=== PATIENT | female | born 1970 | race Caucasian/White ===

== ENCOUNTER 2017-04-20 13:38 | Emergency (ER) | payer BC ==
[2017-04-20] MEDS ORDERED: Aspirin 81 MG Tab.Chew PO ONE (14:34)
[2017-04-20] MEDS ORDERED: Alum Hydrox/Mag Hydrox/Simeth 30 ML, Lidocaine 2% 15 ML PO ONE ×2 (14:34)
[2017-04-20] MEDS ORDERED: Sodium Chloride 0.9% 10 ML Syringe FLUSH PRN (14:34)
[2017-04-20] MEDS ORDERED: Aspirin 325 MG Tab.EC PO ONE (14:34)
--- NOTE | 2017-04-20 14:37 | EDM.PDOC ---
ED HPI GENERAL MEDICAL PROBLEM - General Chief Complaint: Chest Pain Stated Complaint: CHEST PAIN Time Seen by Provider: 04/20/17 14:25 Source of Information: Reports: Patient History Limitations: Reports: No Limitations - History of Present Illness INITIAL COMMENTS - FREE TEXT/NARRATIVE: Patient is a 46-year-old female who presents the ED complaining of chest pressure. States this started approximate 4:00 this morning upon awakening. Pain is described as a pressure sensation to the substernal aspect of her chest. She does have evidence of intermittent sharp, stabbing, dull ache that does not radiate. She become lightheaded with no presyncope or syncopal episode. She did have intermittent episode of nausea with shortness of breath. Pain has been noted to increase with taking a deep breath. Denies any fever/ chills, diaphoresis, history of coronary disease, experiencing similar symptoms in the past, or any additional complaints. Pain is rated a 5 at 10 currently. She has not taken any [id number] medications. PCP is Dr. Crys Arias. Patient is a type II diabetic with A1c of 7.2. She has no history of hypercholesteremia, hypertension, kidney disease, or coronary disease. There are no first-degree relatives with coronary disease. She has no history of DVT/ PE. Treatments AIR DIRECTOR: Reports: Other (see below) Other Treatments AIR DIRECTOR: daily asa 81 mg at 0700 Chest Pain Score (Numeric/FACES): 5 - Related Data Allergies Allergy/AdvReac Type Severity Reaction Status Date / Time morphine Allergy Cannot Verified 04/20/17 15:25 Remember Sulfa (Sulfonamide Allergy Rash Verified 04/20/17 15:25 Antibiotics) Home Meds: Home Meds Kombiglyze. 1 tab PO BID 04/10/14 [History] Lantus. 25 units INJECT BEDTIME 04/10/14 [History] Multivitamin [Multivitamins] 1 tab PO DAILY 04/20/17 [History] Social & Family History - Tobacco Use Years of Tobacco use: 22 - Alcohol Use Days Per Week of Alcohol Use: 0 - Recreational Drug Use Recreational Drug Use: No ED ROS GENERAL - Review of Systems Review Of Systems: ROS reveals no pertinent complaints other than HPI. ED EXAM, GENERAL - Physical Exam Exam: See Below Exam Limited By: No Limitations General Appearance: Alert, WD/WN, No Apparent Distress Ears: Hearing Grossly Normal Nose: Normal Inspection Throat/Mouth: Normal Voice, No Airway Compromise Head: Atraumatic, Normocephalic Neck: Normal Inspection, Supple Respiratory/Chest: No Respiratory Distress, Lungs Clear, Normal Breath Sounds, No Accessory Muscle Use, Other (Tenderness with palpation along the sternal border right equal to left. No deformity, bruising, swelling, ecchymosis present.) Cardiovascular: Normal Peripheral Pulses, Regular Rate, Rhythm, No JVD, No Murmur Peripheral Pulses: 2+: Radial (L), Radial (R) GI/Abdominal: Normal Bowel Sounds, Soft, Non-Tender, No Organomegaly, No Distention Back Exam: Normal Inspection Extremities: Normal Inspection, Normal Range of Motion, Non-Tender, No Pedal Edema, Normal Capillary Refill Neurological: Alert, Oriented, CN II-XII Intact, Normal Cognition, No Motor/ Sensory Deficits Psychiatric: Normal Affect, Normal Mood Skin Exam: Warm, Dry, Intact, Normal Color, No Rash Course - Vital Signs Last Recorded V/S: Last Vital Signs Temp 97.2 F 04/20/17 13:46 Pulse 80 04/20/17 17:06 Resp 16 04/20/17 17:06 BP 101/73 04/20/17 17:06 Pulse Ox 98 04/20/17 17:06 - Orders/Labs/Meds Orders: Active Orders 24 hr Category Date Time Status EKG 12 Lead [EKG Documentation Completion] [RC] STAT Care 04/20/17 13:55 Active Peripheral IV Care [RC] . DIRECTED Care 04/20/17 14:34 Active CXR [Chest 2V] [CR] Stat Exams 04/20/17 14:33 Taken Peripheral IV Insertion Adult [OM.PC] Stat Oth 04/20/17 14:33 Ordered Labs: Laboratory Tests 04/20/17 04/20/17 04/20/17 Range/Units 15:00 15:00 15:00 WBC 9.68 (3.98-10.04) K/mm3 RBC 4.43 (3.98-5.22) M/mm3 Hgb 13.2 (11.2-15.7) gm/L Hct 38.1 (34.1-44.9) % MCV 86.0 (79.4-94.8) fl MCH 29.8 (25.6-32.2) pg MCHC 34.6 (32.2-35.5) g/dl RDW Std Deviation 39.3 (36.4-46.3) fL Plt Count 318 (182-369) K/mm3 MPV 10.4 (9.4-12.3) fl Neut % (Auto) 61.6 (34.0-71.1) % Lymph % (Auto) 25.2 (19.3-51.7) % [place] % (Auto) 8.4 (4.7-12.5) % Eos % (Auto) 4.3 (0.7-5.8) Baso % (Auto) 0.3 (0.1-1.2) % Neut # (Auto) 5.96 (1.56-6.13) K/mm3 Lymph # (Auto) 2.44 (1.18-3.74) K/mm3 [place] # (Auto) 0.81 H (0.24-0.36) K/mm3 Eos # (Auto) 0.42 H (0.04-0.36) K/mm3 Baso # (Auto) 0.03 (0.01-0.08) K/mm3 PT 10.4 (8.0-13.0) SECONDS INR 0.96 APTT 29 (22-36) SECONDS D-Dimer, Quantitative 0.40 (0.19-0.59) mg/L Sodium 138 (136-145) mEq/L Potassium 3.7 (3.5-5.1) mEq/L Chloride 103 (98-107) mEq/L Carbon Dioxide 29 (21-32) mEq/L Anion Gap 9.7 (5-15) BUN 17 (7-18) mg/dL Creatinine 0.9 (0.55-1.02) mg/dL Est Cr Clr Drug Dosing 71.03 mL/min Estimated GFR (MDRD) > 60 (>60) mL/min BUN/Creatinine Ratio 18.9 H (14-18) Glucose 180 H (74-106) mg/dL Calcium 9.3 (8.5-10.1) mg/dL Total Bilirubin 0.7 (0.2-1.0) mg/dL AST 17 (15-37) U/L ALT 20 (14-59) U/L Alkaline Phosphatase 79 (46-116) U/L Troponin I < 0.017 (0.00-0.056) ng/mL C-Reactive Protein 0.8 (<1.0) mg/dL Total Protein 7.0 (6.4-8.2) g/dl Albumin 3.8 (3.4-5.0) g/dl Globulin 3.2 gm/dL Albumin/Globulin Ratio 1.2 (1-2) Meds: Medications Discontinued Medications Generic Name Dose Route Start Last Admin Trade Name William PRN Reason Stop Dose Admin Aspirin 81 mg 04/20/17 14:34 Aspirin PO 04/20/17 14:35 ONETIME ONE Aspirin 325 mg 04/20/17 14:34 04/20/17 14:54 Ecotrin PO 04/20/17 14:35 325 mg ONETIME ONE Administration Al Hydroxide/Mg Hydroxide 30 0 ml 04/20/17 14:34 04/20/17 14:54 ml/ Lidocaine HCl 15 ml PO 04/20/17 14:35 45 ml ONETIME ONE Administration Sodium Chloride 10 ml 04/20/17 14:34 04/20/17 14:57 Saline Flush FLUSH 10 ml ASDIRECTED PRN Administration Keep Vein Open - Re-Assessments/Exams Free Text/Narrative Re-Assessment/Exam: Findings on examination revealed increasing pain to the sternal borders with palpation. Right equal to left. Low probability being heart related. Patient does have history diabetes thus microvascular disease. Will go ahead and rule her out with obtaining labs. Peripheral IV will be started. Initial labs and studies include a CBC, chem 14, CRP, d-dimer, PTT, PT INR, troponin, chest x-ray two-view, EKG. Also ordered aspirin 325 mg by mouth and also GI cocktail by mouth. EKG revealed a sinus rhythm at a rate of [address] changes noted. 04/20/17 16:21 Labs reviewed: CBC essentially normal. D-dimer 0.40, sodium 138, potassium 3.7, creatinine 0.9, glucose 180, troponin less than 0.017, and CRP 0.8. CXR revealed: no acute processes. 04/20/17 16:52 Reassessment, patient had significant improvement with the above symptoms with administration of GI cocktail. Patient may have esophagitis, esophageal spasms, or gastritis to which we cannot diagnose. Will discharge patient home with instructions as documented. She'll see her PCP in the next week for reevaluation. Patient had no additional questions concerns was a full agreement of treatment plan. Vital signs are stable. Patient has a history of low blood pressures with no new findings as of recent. Departure - Departure Time of Disposition: 16:54 Disposition: Home, Self-Care 01 Condition: Good Clinical Impression: Atypical chest pain Instructions: Chest Wall Pain Referrals: Crys Arias, [Primary Care Provider] - Forms: ED Department Discharge, ED Return to Work/School Form Additional Instructions: Unclear etiology current complaints. Chest pain is reproducible with palpation and taking a deep breath. You did get relief of discomfort with taking GI cocktail to which makes an argument you may have esophagitis, gastritis, or had experienced some esophageal spasm. Unclear etiology at this time. Will have you take Prilosec one tab half-hour prior to eating breakfast every morning for the next 2 weeks. See her PCP this following week for reevaluation. Take Tylenol as needed for pain. Return to the ED as needed for any new or worsening symptoms. - My Orders Last 24 Hours: My Active Orders 04/20/17 13:55 EKG 12 Lead [EKG Documentation Completion] [RC] STAT 04/20/17 14:33 CXR [Chest 2V] [CR] Stat Peripheral IV Insertion Adult [OM.PC] Stat 04/20/17 14:34 Peripheral IV Care [RC] . DIRECTED - Assessment/Plan Last 24 Hours: My Active Orders 04/20/17 13:55 EKG 12 Lead [EKG Documentation Completion] [RC] STAT 04/20/17 14:33 CXR [Chest 2V] [CR] Stat Peripheral IV Insertion Adult [OM.PC] Stat 04/20/17 14:34 Peripheral IV Care [RC] . DIRECTED
[2017-04-20 17:09] VITALS: BP 101/73
--- NOTE | 2017-04-21 08:32 | CR ---
Chest: Two views of the chest were obtained. Comparison: No previous chest x-ray. Heart size and mediastinum are normal. Lungs are clear. Bony structures are unremarkable. Impression: 1. Nothing acute is identified on two-view chest x-ray. Diagnostic code #1
== END 2017-04-20 17:00 | disposition home or self-care (01) ==
LOC: JD.ED 13:38
DX: R07.89 Other chest pain (principal); Z88.5 Allergy status to narcotic agent; Z88.2 Allergy status to sulfonamides
CPT/HCPCS: 36415; 71020; 80053; 84484; 85025; 85379; 85610; 85730; 86140; 93005; 99285; A9270; J7050; 99284

== ENCOUNTER 2021-10-02 20:14 | Emergency (ER) | payer BC, OTHER ==
[2021-10-02 20:40] VITALS: BP 131/84; PULSE 99
[2021-10-02 21:54] LABS: CORONAVIRUS COVID-19 NAA NEGATIVE (NEGATIVE)
== END 2021-10-02 22:23 | disposition home or self-care (01) ==
LOC: JD.ED 20:14
DX: J02.8 Acute pharyngitis due to other specified organisms (principal); E11.9 Type 2 diabetes mellitus without complications; Z87.891 Personal history of nicotine dependence; Z88.5 Allergy status to narcotic agent; Z88.2 Allergy status to sulfonamides
CPT/HCPCS: 0240U; 87651; 99283

== ENCOUNTER 2024-03-18 13:41 | Emergency (ER) | payer OTHER ==
[2024-03-18] MEDS: Sodium Chloride 0.9% 1,000 ML IV STA (14:10)
[2024-03-18] MEDS: Sodium Chloride 0.9% 10 ML Syringe FLUSH PRN (14:10)
[2024-03-18] MEDS: Insulin Lispro 100 Unit/ML 3 ML KwikPen SUBCUT ONE ×2 (14:12→16:27)
[2024-03-18 14:33] LABS: BASOPHILS PERCENT AUTO 0.4 % (0.0-1.0); EOSINOPHILS ABSOLUTE AUTO 0.2 K/mm3 (0.0-0.4); EOSINOPHILS PERCENT AUTO 1.8 % (0.0-6.0); HEMOGLOBIN 13.6 gm/dl (12.0-16.0); IMMATURE GRAN ABSOLUTE AUTO 0.04 K/mm3 (0.00-0.05); IMMATURE GRAN PERCENT AUTO 0.4 % (0.0-0.4); LYMPHOCYTES PERCENT AUTO 22.1 % (24.0-44.0); MEAN CORPUSCULAR HEMOGLOBIN 30.7 pg (28.0-32.0); MEAN CORPUSCULAR HGB CONC 35.8 g/dl (32.0-36.0); MEAN CORPUSCULAR VOLUME 85.8 fl (83.0-99.0); MEAN PLATELET VOLUME 10.9 fl (9.4-12.3); MONOCYTES ABSOLUTE AUTO 0.7 K/mm3 (0.0-0.8); MONOCYTES PERCENT AUTO 7.3 % (0.0-8.0); NEUTROPHILS ABSOLUTE AUTO 6.1 K/mm3 (1.8-7.7); PLATELET COUNT,PLT 293 K/mm3 (150-400); RED BLOOD CELL COUNT 4.43 M/mm3 (4.10-5.30); WHITE BLOOD CELL COUNT,WBC 8.92 K/mm3 (3.9-11.3)
[2024-03-18 14:46] LABS: A/G RATIO 1.2 (1-2); ALBUMIN 3.6 g/dl (3.4-5.0); ANION GAP 15.1 (5-15); BILIRUBIN TOTAL 0.6 mg/dL (0.2-1.0); BUN/CREATININE RATIO 11.1 (14-18); CREATININE 0.9 mg/dL (0.55-1.02); EST CRCL DRUG DOSING (CG) 65.8 mL/min; POTASSIUM,K 4.1 mEq/L (3.5-5.1); PROTEIN TOTAL,TP 6.5 g/dl (6.4-8.2)
[2024-03-18] MEDS: Sodium Chloride 0.9% 500 ML IV ONE (15:16)
[2024-03-18 16:01] LABS: APPEARANCE,URINE CLEAR (Clear); BILIRUBIN,URINE NEGATIVE (Negative); COLOR,URINE LIGHT YELLOW (Yellow); GLUCOSE,URINE 2+ (Negative); KETONES,URINE NEGATIVE (Negative); LEUKOCYTE ESTERASE,URINE NEGATIVE (Negative); NITRITE,URINE NEGATIVE (Negative); OCCULT BLOOD,URINE NEGATIVE (Negative); PROTEIN,URINE NEGATIVE (Negative); UROBILINOGEN,URINE 0.2 (0.2-1.0)
[2024-03-18 16:35] VITALS: BP 104/78; PULSE 72
== END 2024-03-18 16:30 | disposition home or self-care (01) ==
LOC: JD.ED 13:41
DX: E11.65 Type 2 diabetes mellitus with hyperglycemia (principal); Z87.891 Personal history of nicotine dependence; Z88.5 Allergy status to narcotic agent; Z79.4 Long term (current) use of insulin; Z88.2 Allergy status to sulfonamides
CPT/HCPCS: 36415; 80053; 81003; 82947; 85025; 96360; 96361; 99284; J1815; J3490; J7030; 99283

== ENCOUNTER 2024-04-10 17:24 | Emergency (ER) | payer OTHER ==
[2024-04-10 19:35] LABS: CORONAVIRUS COVID-19 NAA POSITIVE (NEGATIVE); INFLUENZA A NAA NEGATIVE (NEGATIVE); RESPIRATORY SYNCYTIAL VIR NAA NEGATIVE (NEGATIVE)
[2024-04-10] MEDS: Sodium Chloride 0.9% 1,000 ML IV ONE (21:05)
[2024-04-10] MEDS: Ketorolac 30 MG/ML SDV IVPUSH ONE (21:06)
[2024-04-10] MEDS: Prochlorperazine 10 MG/2 ML SDV IVPUSH ONE (21:07)
[2024-04-10] MEDS: Sodium Chloride 0.9% 10 ML Syringe FLUSH PRN (21:07)
[2024-04-10 21:09] LABS: BASOPHILS ABSOLUTE AUTO 0.1 K/mm3 (0.0-0.2); BASOPHILS PERCENT AUTO 0.5 % (0.0-1.0); EOSINOPHILS PERCENT AUTO 0.4 % (0.0-6.0); HEMATOCRIT 38.6 % (37.0-47.0); IMMATURE GRAN ABSOLUTE AUTO 0.02 K/mm3 (0.00-0.05); IMMATURE GRAN PERCENT AUTO 0.2 % (0.0-0.4); LYMPHOCYTES ABSOLUTE AUTO 0.5 K/mm3 (1.0-4.8); LYMPHOCYTES PERCENT AUTO 5.7 % (24.0-44.0); MEAN CORPUSCULAR HEMOGLOBIN 30.2 pg (28.0-32.0); MEAN CORPUSCULAR HGB CONC 33.7 g/dl (32.0-36.0); MEAN CORPUSCULAR VOLUME 89.8 fl (83.0-99.0); MONOCYTES ABSOLUTE AUTO 0.7 K/mm3 (0.0-0.8); MONOCYTES PERCENT AUTO 7.4 % (0.0-8.0); NEUTROPHILS ABSOLUTE AUTO 7.9 K/mm3 (1.8-7.7); NEUTROPHILS PERCENT AUTO 85.8 % (41.0-71.0); PLATELET COUNT,PLT 245 K/mm3 (150-400); WHITE BLOOD CELL COUNT,WBC 9.27 K/mm3 (3.9-11.3)
[2024-04-10 21:16] LABS: APPEARANCE,URINE CLEAR (Clear); BILIRUBIN,URINE NEGATIVE (Negative); COLOR,URINE YELLOW (Yellow); GLUCOSE,URINE 3+ (Negative); KETONES,URINE TRACE (Negative); LEUKOCYTE ESTERASE,URINE NEGATIVE (Negative); NITRITE,URINE NEGATIVE (Negative); OCCULT BLOOD,URINE TRACE-INTACT (Negative); PROTEIN,URINE NEGATIVE (Negative)
[2024-04-10 21:44] LABS: BACTERIA,URINE FEW /hpf (FEW); MUCUS,URINE FEW /hpf (FEW); WBC,URINE 0-5 /hpf (0-5)
[2024-04-10 22:02] LABS: A/G RATIO 1.1 (1-2); ALANINE AMINOTRANSFERASE,ALT 18 U/L (14-59); ALBUMIN 3.2 g/dl (3.4-5.0); ALKALINE PHOSPHATASE 74 U/L (46-116); ANION GAP 14.4 (5-15); ASPARTATE AMNIOTRANSFERASE,AST 10 U/L (15-37); BILIRUBIN TOTAL 0.5 mg/dL (0.2-1.0); BLOOD UREA NITROGEN,BUN 12 mg/dL (7-18); C-REACTIVE PROTEIN 1.87 mg/dL (<0.30); CALCIUM 8.6 mg/dL (8.5-10.1); CARBON DIOXIDE,CO2 24 mEq/L (21-32); CHLORIDE,CL 102 mEq/L (98-107); CREATININE 0.6 mg/dL (0.55-1.02); EST CRCL DRUG DOSING (CG) 98.69 mL/min; ESTIMATED GFR 108 mL/min (>60); GLUCOSE RANDOM 136 mg/dL (70-99); MAGNESIUM 1.9 mg/dL (1.8-2.4); POTASSIUM,K 3.4 mEq/L (3.5-5.1); PROTEIN TOTAL,TP 6.2 g/dl (6.4-8.2); SODIUM,NA 137 mEq/L (136-145)
[2024-04-10 22:03] LABS: TROPONIN I HIGH SENSITIVITY < 4 pg/mL (<=51)
[2024-04-11 00:49] VITALS: BP 97/58; PULSE 76
== END 2024-04-11 00:23 | disposition home or self-care (01) ==
LOC: JD.ED 17:24
DX: U07.1 COVID-19 (principal); E11.9 Type 2 diabetes mellitus without complications; Z79.4 Long term (current) use of insulin; Z88.5 Allergy status to narcotic agent; Z88.2 Allergy status to sulfonamides
CPT/HCPCS: 0241U; 36415; 80053; 81001; 83735; 84484; 85025; 86140; 96361; 96374; 96375; 99284; J0780; J1885; J3490; J7030